=== PATIENT | female | born 1995 | race Caucasian/White ===

== ENCOUNTER 2018-07-02 13:39 | Emergency (ER) | payer OTHER ==
[~2018-07-02] VITALS: Ht 162.6 cm; Wt 54.4 kg
[2018-07-02 13:52] VITALS: BP_SYST 134
[2018-07-02 15:06] VITALS: BP_SYST 130
== END 2018-07-02 15:00 ==
LOC: SED 13:39
DX: S63.502A Unspecified sprain of left wrist, initial encounter (principal); I10 Essential (primary) hypertension; X58.XXXA Exposure to other specified factors, initial encounter; Y93.89 Activity, other specified; Y92.89 Other specified places as the place of occurrence of the external cause; Y99.8 Other external cause status
CPT/HCPCS: 99284

== ENCOUNTER 2018-07-03 12:23 | Emergency (ER) | payer OTHER ==
[~2018-07-03] VITALS: Ht 165.1 cm; Wt 52.2 kg
[2018-07-03 12:33] VITALS: BP_SYST 138
[2018-07-03 12:45] VITALS: BP_SYST 130
== END 2018-07-03 12:45 ==
LOC: SED 12:23
DX: B00.9 Herpesviral infection, unspecified (principal); R11.10 Vomiting, unspecified; M25.532 Pain in left wrist; M54.9 Dorsalgia, unspecified; I10 Essential (primary) hypertension
CPT/HCPCS: 99283